=== PATIENT | male | born 1975 | race African-American/Black ===

== ENCOUNTER 2016-09-28 11:18 | Emergency (ER) | payer MEDICAID ==
[~2016-09-28] VITALS: Ht 177.8 cm; Wt 88.5 kg
[2016-09-28 11:18] VITALS: BP 125/77
[2016-09-28 12:50] LABS: APPEARANCE,URINE Clear (CLEAR); BILIRUBIN,URINE Negative (NEGATIVE); BLOOD, URINE Small Ery/uL (NEGATIVE); COLOR,URINE Yellow (YELLOW); KETONES,URINE Negative (NEGATIVE); LEUKOCYTE ESTERASE ,URINE Negative (NEGATIVE); NITRITE, URINE Negative (NEGATIVE); PROTEIN,URINE Negative (NEGATIVE); UGLUCOSE Negative (NEGATIVE); UROBILINOGEN,URINE 0.2 EU/dL (0.2)
[2016-09-28 12:54] LABS: BACTERIA,URINE None seen /HPF (None Seen); RBC,URINE 0-3 /HPF (0-2); SQUAMOUS EPITHELIAL CELL,UR Few /HPF (None Seen); WBC,URINE 0-3 /HPF (0-3)
== END 2016-09-28 13:09 | disposition home or self-care (01) ==
LOC: ER 11:20
DX: R10.9 Unspecified abdominal pain (principal); R05 Cough; F17.210 Nicotine dependence, cigarettes, uncomplicated; F12.10 Cannabis abuse, uncomplicated
CPT/HCPCS: 81001; 99283; A4606; Z7610; 81000-TC

== ENCOUNTER 2024-09-11 11:58 | Emergency (ER) | payer MEDICAID ==
[~2024-09-11] VITALS: Ht 180.3 cm; Wt 85.7 kg
[2024-09-11 12:04] VITALS: BP 134/78; TEMP 98.2
[2024-09-11] MEDS ORDERED: CLOT15CR27 TP (12:39)
[2024-09-11 12:44] VITALS: O2SAT 99
== END 2024-09-11 12:45 | disposition home or self-care (01) ==
LOC: ER 12:03
DX: R68.2 Dry mouth, unspecified (principal); B37.0 Candidal stomatitis; F17.200 Nicotine dependence, unspecified, uncomplicated; Z76.0 Encounter for issue of repeat prescription; Z60.2 Problems related to living alone
CPT/HCPCS: 82962-TC

== ENCOUNTER 2024-09-17 08:12 | Emergency (ER) | payer MEDICAID ==
[~2024-09-17] VITALS: Ht 180.3 cm; Wt 90.7 kg
[~2024-09-17 08:12] MED LIST: CLOT15CR27 TP
[2024-09-17] MEDS ORDERED: IOHEXOL-300 100 ML VIAL IV ONE (09:27)
[2024-09-17] MEDS ORDERED: CT SWABBABLE VALVE TRANS SET 1 EA INFUS.SET MC ONE (09:27)
[2024-09-17] MEDS ORDERED: IOHEXOL 240MG/ML 50 ML IV ONE (09:27)
[2024-09-17 09:33] LABS: BASOPHILS % (AUTO) 1.2 % (0.0-2.0); EOSINOPHILS # (AUTO) 0.1 K/uL (0.0-0.7); EOSINOPHILS % (AUTO) 2.6 % (0.0-6.0); HEMATOCRIT 40 % (39-51); HEMOGLOBIN 13.4 g/dL (13.5-17.5); INR 1.15 (0.91-1.10); LYMPHOCYTES # (AUTO) 1.9 K/uL (0.8-4.8); LYMPHOCYTES % (AUTO) 57.1 % (20.0-44.0); MEAN CORPUSCULAR HEMOGLOBIN 29 PG (26.0-33.0); MEAN CORPUSCULAR HGB CONC 33 g/dl (31.0-36.0); MEAN CORPUSCULAR VOLUME 85 fL (80-96); MONOCYTES # (AUTO) 0.4 K/uL (0.1-1.30); MONOCYTES % (AUTO) 10.4 % (2.0-12.0); NEUTROPHILS % (AUTO) 28.7 % (43.0-81.0); PARTIAL THROMBOPLASTIN TIME 29.8 SEC (24.3-34.3); PLATELET COUNT (AUTO) 101 K/uL (150-450); PROTHROMBIN TIME 12.1 SECS (9.2-11.1); RED BLOOD CELL COUNT(AUTO) 4.71 MIL/uL (4.5-6.0); RED CELL DISTRIBUTION WIDTH 15.6 % (11.5-15.0); WHITE BLOOD COUNT (AUTO) 3.4 K/uL (4.3-11.0)
[2024-09-17 09:47] LABS: ALBUMIN 2.8 g/dL (3.4-5.0); BILIRUBIN,DIRECT 0.1 mg/dL (0.0-0.2); BILIRUBIN,TOTAL 0.4 mg/dL (0.2-1.0); CALCIUM, SERUM 8.9 mg/dL (8.5-10.1); CREATININE 1.2 mg/dL (0.6-1.3); POTASSIUM 4.7 mmol/L (3.5-5.1); TOTAL PROTEIN, SERUM 9.9 g/dL (6.4-8.2)
[2024-09-17 11:26] VITALS: BP 118/74; TEMP 97.9; O2SAT 98
== END 2024-09-17 11:27 | disposition home or self-care (01) ==
LOC: ER 08:12
DX: K92.1 Melena (principal); F17.200 Nicotine dependence, unspecified, uncomplicated; Z60.2 Problems related to living alone; Z79.899 Other long term (current) drug therapy
CPT/HCPCS: 99285; 74177; 85025; 80048; 80076; 36415; 85730; Q9967; Q9966